=== PATIENT | female | born 1965 | race Caucasian/White ===

== ENCOUNTER → 2016-10-27 | Outpatient (CLI) | payer BC ==
[2016-10-27 14:17] LABS: Basophils % (A) 1 %; CH 26.4; CHCM 31.8; Eosinophils # (A) 0.1 k/uL (0-0.7); Eosinophils % (A) 3 %; HCT 27.3 % (34.0-46.0); HDW 3.63; HGB 8.9 gm/dL (11.4-16.0); Hypochromasia Moderate; Luc % (Auto) 3; Lymphocytes # (A) 1.5 k/uL (1.0-4.8); Lymphocytes % (A) 36 %; MCH 27.4 pg (25.0-35.0); MCHC 32.8 g/dL (31.0-37.0); MCV 83.6 fL (80.0-100.0); Mean Platelet Volume 7.1; Monocytes # (A) 0.1 k/uL (0-1.0); Monocytes % (A) 3 %; Neutrophils # (A) 2.3 k/uL (1.3-7.7); Neutrophils % (A) 55 %; Poikilocytosis Slight; RBC 3.26 m/uL (3.80-5.40); RDW 15.4 % (11.5-15.5); WBC 4.2 k/uL (3.8-10.6); WBC (Perox) 4.27
== END | disposition home or self-care (01) ==
LOC: LABWHC1 13:28
PROVIDERS: ATTEND Family Medicine
DX: R53.83 Other fatigue (principal)
CPT/HCPCS: 36415; 85025

== ENCOUNTER → 2016-11-08 | Outpatient (CLI) | payer BC ==
[2016-11-08 12:45] LABS: Basophils # (A) 0.1 k/uL (0-0.2); Basophils % (A) 1 %; CH 25.1; CHCM 30.3; Eosinophils # (A) 0.1 k/uL (0-0.7); Eosinophils % (A) 2 %; HCT 33.9 % (34.0-46.0); HGB 10.4 gm/dL (11.4-16.0); Hypochromasia Marked; Luc # (Auto) 0.19; Luc % (Auto) 3; Lymphocytes # (A) 1.4 k/uL (1.0-4.8); Lymphocytes % (A) 24 %; MCH 25.5 pg (25.0-35.0); MCHC 30.6 g/dL (31.0-37.0); MCV 83.4 fL (80.0-100.0); Monocytes # (A) 0.3 k/uL (0-1.0); Monocytes % (A) 5 %; Neutrophils # (A) 3.8 k/uL (1.3-7.7); Neutrophils % (A) 64 %; Poikilocytosis Moderate; RBC 4.06 m/uL (3.80-5.40); RDW 14.7 % (11.5-15.5); WBC (Perox) 6.28
== END | disposition home or self-care (01) ==
LOC: LABPAT 12:26
PROVIDERS: ATTEND Obstetrics & Gynecology
DX: Z01.812 Encounter for preprocedural laboratory examination (principal); N92.0 Excessive and frequent menstruation with regular cycle; N95.1 Menopausal and female climacteric states; D25.9 Leiomyoma of uterus, unspecified
CPT/HCPCS: 83001; 85025

== ENCOUNTER 2016-11-15 06:18 | Day surgery (SDC) | payer BC ==
[2016-11-11 16:06] VITALS: BMI 38.8
[~2016-11-15 06:18] MED LIST: DEXAMETHASONE SOD PHOSPHATE 10 MG/ML 1 ML VIAL IV ONE; HYDROmorphone 1 MG/ML 1 ML SYRINGE IVP PRN; LACTATED RINGERS 1,000 ML IV SCH; LIDOCAINE 1% 20 ML VIAL (10MG/ML) FOR IV START INTRADERMA PRN; ONDANSETRON 4 MG/2 ML VIAL IVP ONE; Pre Op ABX Message 1 EACH MISC MISCELLANE ONE; SCOPOLAMINE 1.5MG/72HR PATCH TRANSDERM ONE
[2016-11-15] MEDS ORDERED: PROPOFOL 10 MG/ML 20 ML VIAL IV ONE (07:21)
[2016-11-15] MEDS ORDERED: fentaNYL (PF) 50 MCG/ML 2 ML AMP ONE (07:21)
[2016-11-15] MEDS ORDERED: LIDOCAINE 1% INJ 10MG/ML (20 ML MDV) ONE (07:21)
[2016-11-15] MEDS ORDERED: MIDAZOLAM 2 MG/2 ML VIAL ONE (07:21)
[2016-11-15 07:55] VITALS: TEMP 99.6
[2016-11-15] MEDS ORDERED: KETOROLAC 30 MG/ML 1 ML VIAL IVP ONE (07:55)
--- NOTE | 2016-11-15 08:01 | P.OP ---
Date of Procedure: 11/15/16 Preoperative Diagnosis: bleeding, anemia, fibroid uterus. Postoperative Diagnosis: Endometrial polyps, fibroids, pathology pending. Procedure(s) Performed: Hysteroscopy, fractional D&C of the uterine cavity, polypectomy. Surgeon: Zari Frias Estimated Blood Loss (ml): 50 IV fluids (ml): 500 Urine output (ml): 150 Pathology: other (The endometrial curettings and polyps.) Condition: stable Disposition: PACU Description of Procedure: Patient is brought to the operating suite where a general anesthetic is administered without difficulty. She's placed in the dorsal lithotomy position. The cervix, vagina, perineum and periurethral areas are all inspected and noted to be normal, they are prepped and draped in usual sterile fashion. Bladder is drained for 150 mL of clear yellow urine. The appropriate timeout is performed to assure proper patient and procedural identification. test is negative. Weighted speculum was placed into the vagina. The cervix appears nulliparous. It is grasped on the anterior lip with a double-tooth tenaculum. Endocervical curettings are performed and sent to pathology. The uterus then sounds to a depth of 15 cm. The cervix was gently and systematically dilated with Hanks dilators. The hysteroscope was placed, saline is infused, and the cavity is distended. There are multiple endometrial polyps noted, along with a uterine fibroid subserosal. Hysteroscope was removed. Cervix is then fully dilated. A medium sharp curette is used and the uterus is thoroughly her attention all 4 quadrants. A fair amount of tissue including polyps and what appears to be a uterine fibroid are procured. When this is done, the hysteroscope is reintroduced, the cavity is re-distended and inspected. No obvious polyps or fibroids remained per inspection. The hysteroscope was removed. Instrumentation is removed from the vagina. The cervix is clean and dry. The uterus is firm, there is only scant bleeding noted. Patient is given Toradol. All sponge needle and enhancement counts are correct at the end of the procedure. Patient is brought back to the recovery room in very good condition with stable vital signs including blood pressure 148/73, pulse 86, 99% O2 saturation. Estimated blood loss 500 mL's. Complications: None. She will follow-up with me in the office in 2 weeks and postoperative instructions are reviewed.
[2016-11-15 08:02] VITALS: RESP 18
[2016-11-15 09:02] VITALS: BP 115/66; PULSE 75
== END 2016-11-15 09:30 | disposition home or self-care (01) ==
LOC: OR 06:18
PROVIDERS: ATTEND Obstetrics & Gynecology
DX: N84.0 Polyp of corpus uteri (principal); D25.2 Subserosal leiomyoma of uterus; D64.9 Anemia, unspecified; Z79.52 Long term (current) use of systemic steroids; Z79.899 Other long term (current) drug therapy; Z88.1 Allergy status to other antibiotic agents; Z88.2 Allergy status to sulfonamides; Z88.8 Allergy status to other drugs, medicaments and biological substances
CPT/HCPCS: 58558; 81025; 88305; J2250; J1100; J2405; J2001; J3010; J1885; J2704

== ENCOUNTER → 2017-06-10 | Outpatient (CLI) | payer BC ==
[2017-06-10 10:41] LABS: Anisocytosis Slight; Basophils # (A) 0.1 k/uL (0-0.2); Basophils % (A) 1 %; CH 23.6; CHCM 31.8; Eosinophils # (A) 0.1 k/uL (0-0.7); Eosinophils % (A) 2 %; HCT 32.9 % (34.0-46.0); HDW 3.37; HGB 10.3 gm/dL (11.4-16.0); Hypochromasia Moderate; Luc # (Auto) 0.19; Luc % (Auto) 4; Lymphocytes # (A) 1.7 k/uL (1.0-4.8); Lymphocytes % (A) 33 %; MCH 23.2 pg (25.0-35.0); MCHC 31.2 g/dL (31.0-37.0); MCV 74.5 fL (80.0-100.0); Microcytosis Slight; Monocytes # (A) 0.3 k/uL (0-1.0); Monocytes % (A) 5 %; Neutrophils # (A) 2.8 k/uL (1.3-7.7); Neutrophils % (A) 55 %; RBC 4.42 m/uL (3.80-5.40); RDW 16.7 % (11.5-15.5); WBC (Perox) 5.22
[2017-06-10 12:05] LABS: ALT 36 U/L (9-52); AST 22 U/L (14-36); Alkaline Phosphatase 82 U/L (38-126); Anion Gap 10 mmol/L; Blood Urea Nitrogen 10 mg/dL (7-17); Calcium 9.6 mg/dL (8.4-10.2); Carbon Dioxide 21 mmol/L (22-30); Chloride 110 mmol/L (98-107); Glucose 85 mg/dL (74-99); Iron 21 ug/dL (37-170); Non-African American GFR(MDRD) >60 (>60 ml/min/1.73 sqM); Potassium 4.4 mmol/L (3.5-5.1); Sodium 141 mmol/L (137-145); Total Bilirubin 0.3 mg/dL (0.2-1.3); Total Protein 6.8 g/dL (6.3-8.2)
[2017-06-10 12:14] LABS: % Iron Saturation 5.1 % (20-50); Total Iron Binding Capacity 411 ug/dL (265-497)
== END | disposition home or self-care (01) ==
LOC: LABWHC1 10:04
PROVIDERS: ATTEND Nurse Practitioner Family
DX: N92.0 Excessive and frequent menstruation with regular cycle (principal); L65.9 Nonscarring hair loss, unspecified; R20.2 Paresthesia of skin; R51 Headache
CPT/HCPCS: 36415; 80053; 83540; 83550; 84439; 84443; 84466; 85025

== ENCOUNTER 2018-02-11 08:24 | Emergency (ER) | payer BC ==
--- NOTE | 2018-02-11 09:10 | ED ---
General Adult HPI - General Chief complaint: Upper Respiratory Infection Stated complaint: Diff Breathing Time Seen by Provider: 02/11/18 08:32 Source: patient, RN notes reviewed Mode of arrival: ambulatory Limitations: no limitations - History of Present Illness Initial comments: Patient 53-year-old female presenting to the emergency room today with multiple complaints. Patient does admit that she's had cough productive over the last week. Doesn't some sputum production it's been green in color. Patient states that she is also had some increased urinary frequency over the past week as well. She does not that she's felt some pain right side. Patient also admits that she has felt somewhat fatigued and states she has a history of anemia and is unsure if this is related to patient denies any other complaints or symptoms. Patient denies any recent fever, chills, shortness of breath, chest pain, nausea or vomiting, numbness or tingling, constipation or diarrhea, headaches or visual changes, or any other complaints. - Related Data Home Medications Medication Instructions Recorded Confirmed medroxyPROGESTERone [Provera] 2.5 mg PO DIRECTED PRN 10/14/15 11/15/16 Ferrous Sulfate [Iron (65 MG 325 mg PO DAILY 11/11/16 11/15/16 Elemental)] Previous Rx's Medication Instructions Recorded Cephalexin [Keflex] 500 mg PO Q12HR 10 Days cap 02/11/18 Allergies Allergy/AdvReac Type Severity Reaction Status Date / Time benzoyl peroxide Allergy Rash/Hives Verified 02/11/18 08:30 sulfamethoxazole Allergy THROAT Verified 02/11/18 08:30 [From Bactrim] Swelling trimethoprim [From Bactrim] Allergy THROAT Verified 02/11/18 08:30 Swelling Review of Systems ROS Statement: Those systems with pertinent positive or pertinent negative responses have been documented in the HPI. ROS Other: All systems not noted in ROS Statement are negative. Past Medical History Past Medical History: No Reported History Additional Past Medical History / Comment(s): HEAVY MENSES, ANEMIA History of Any Multi-Drug Resistant Organisms: None Reported Past Surgical History: No Surgical Hx Reported Additional Past Surgical History / Comment(s): D&C Past Anesthesia/Blood Transfusion Reactions: Previous Problems w/ Anesthesia Additional Past Anesthesia/Blood Transfusion Reaction / Comment(s): STATES WAS VERY HARD TO WAKE UP POST OP, AND HAD CHEST HEAVINESS FOR A COUPLE DAYS AFTER Past Psychological History: No Psychological Hx Reported Smoking Status: Never smoker Past Alcohol Use History: None Reported Past Drug Use History: None Reported - Past Family History Mother Family Medical History: No Reported History General Exam - General Exam Comments Initial Comments: General: The patient is awake and alert, in no distress, and does not appear acutely ill. Eye: Pupils are equal, round and reactive to light, extra-ocular movements are intact. No nystagmus. There is normal conjunctiva bilaterally. No signs of icterus. Ears, nose, mouth and throat: There are moist mucous membranes and no oral lesions. Neck: The neck is supple, there is no tenderness or JVD. Cardiovascular: There is a regular rate and rhythm. No murmur, rub or gallop is appreciated. Respiratory: Lungs are clear to auscultation, respirations are non-labored, breath sounds are equal. No wheezes, stridor, rales, or rhonchi. Gastrointestinal: Soft, non-distended, non-tender abdomen without masses or organomegaly noted. There is no rebound or guarding present. No CVA tenderness. Bowel sounds are unremarkable. Musculoskeletal: Normal ROM, no tenderness. Strength 5/5. Sensation intact. Pulses equal bilaterally 2+. Neurological: A&O x 3. CN II-XII intact, There are no obvious motor or sensory deficits. Coordination appears grossly intact. Speech is normal. Skin: Skin is warm and dry and no rashes or lesions are noted. Psychiatric: Cooperative, appropriate mood & affect, normal judgment. Limitations: no limitations Course Vital Signs 02/11/18 02/11/18 08:26 09:00 Temperature 98 F Pulse Rate 83 Respiratory 18 20 Rate Blood Pressure 136/60 O2 Sat by Pulse 97 Oximetry Medical Decision Making - Medical Decision Making Patient reexamined at this time and shows no signs of distress. Patient has had cough congestion over the past week. Patient does admit to urinary urgency. She states she has a history of anemia. Her labs were checked and are unremarkable. No sign of infection. Culture is pending. Patient's chest x -ray shows no pneumonia. Patient will recover with a antibiotic for bronchitis. Patient advised to follow-up family doctor return here to emergency room symptoms increase or worsen. - Lab Data Result diagrams: 02/11/18 08:55 02/11/18 08:55 Lab Results 02/11/18 02/11/18 02/11/18 Range/Units 08:55 08:55 08:55 WBC 6.8 (3.8-10.6) k/uL RBC 4.57 (3.80-5.40) m/uL Hgb 13.2 (11.4-16.0) gm/dL Hct 38.5 (34.0-46.0) % MCV 84.2 (80.0-100.0) fL MCH 28.9 (25.0-35.0) pg MCHC 34.3 (31.0-37.0) g/dL RDW 13.4 (11.5-15.5) % Plt Count 190 (150-450) k/uL Neutrophils % 63 % Lymphocytes % 19 % Monocytes % 9 % Eosinophils % 4 % Basophils % 1 % Neutrophils # 4.3 (1.3-7.7) k/uL Lymphocytes # 1.3 (1.0-4.8) k/uL Monocytes # 0.6 (0-1.0) k/uL Eosinophils # 0.3 (0-0.7) k/uL Basophils # 0.0 (0-0.2) k/uL Sodium 143 (137-145) mmol/L Potassium 4.2 (3.5-5.1) mmol/L Chloride 110 H (98-107) mmol/L Carbon Dioxide 21 L (22-30) mmol/L Anion Gap 12 mmol/L BUN 15 (7-17) mg/dL Creatinine 0.37 L (0.52-1.04) mg/dL Est GFR (CKD-EPI)AfAm >90 (>60 ml/min/1.73 sqM) Est GFR (CKD-EPI)NonAf >90 (>60 ml/min/1.73 sqM) Glucose 83 (74-99) mg/dL Calcium 9.0 (8.4-10.2) mg/dL Total Bilirubin 0.2 (0.2-1.3) mg/dL AST 26 (14-36) U/L ALT 34 (9-52) U/L Alkaline Phosphatase 76 (38-126) U/L Total Protein 6.4 (6.3-8.2) g/dL Albumin 3.9 (3.5-5.0) g/dL Urine Color Yellow Urine Appearance Cloudy H (Clear) Urine pH 6.0 (5.0-8.0) Ur Specific [place] 1.029 (1.001-1.035) Urine Protein Trace H (Negative) Urine Glucose (UA) Negative (Negative) Urine Ketones Negative (Negative) Urine Blood Negative (Negative) Urine Nitrite Negative (Negative) Urine Bilirubin Negative (Negative) Urine Urobilinogen <2.0 (<2.0) mg/dL Ur Leukocyte Esterase Trace H (Negative) Urine WBC 1 (0-5) /hpf Ur Squamous Epith Cells 1 (0-4) /hpf Urine Mucus Occasional H (None) /hpf Disposition Clinical Impression: Acute bronchitis Disposition: HOME SELF-CARE Condition: Good Instructions: Acute Bronchitis (ED) Additional Instructions: Please use medication as discussed. Please follow-up with family doctor in the next 2 days of symptoms have not improved. Please return to emergency room if the symptoms increase or worsen or for any other concerns. Prescriptions: Cephalexin [Keflex] 500 mg PO Q12HR 10 Days cap Is patient prescribed a controlled substance at d/c from ED?: No Referrals: Cass Waters III, MD [Primary Care Provider] - 1-2 days Time of Disposition: 09:37
[2018-02-11 09:12] LABS: Appearance,Urine Cloudy (Clear); Bilirubin,Urine Negative (Negative); Blood,Urine Negative (Negative); Color,Urine Yellow; Glucose,Urine (UA) Negative (Negative); Ketones,Urine Negative (Negative); Leukocyte Esterase,Urine Trace (Negative); Mucus,Urine Occasional /hpf; Nitrite,Urine Negative (Negative); Protein,Urine Trace (Negative); Specific Gravity,Urine 1.029 (1.001-1.035); Squamous Epithelial Cell,Urine 1 /hpf (0-4); Urobilinogen,Urine <2.0 mg/dL (<2.0); WBC,Urine 1 /hpf (0-5)
[2018-02-11 09:14] LABS: Basophils % (A) 1 %; Eosinophils # (A) 0.3 k/uL (0-0.7); Eosinophils % (A) 4 %; HCT 38.5 % (34.0-46.0); HGB 13.2 gm/dL (11.4-16.0); Lymphocytes # (A) 1.3 k/uL (1.0-4.8); Lymphocytes % (A) 19 %; MCH 28.9 pg (25.0-35.0); MCHC 34.3 g/dL (31.0-37.0); MCV 84.2 fL (80.0-100.0); Mean Platelet Volume 7.3; Monocytes # (A) 0.6 k/uL (0-1.0); Monocytes % (A) 9 %; Neutrophils # (A) 4.3 k/uL (1.3-7.7); Neutrophils % (A) 63 %; Platelet Count 190 k/uL (150-450); RBC 4.57 m/uL (3.80-5.40); RDW 13.4 % (11.5-15.5); WBC 6.8 k/uL (3.8-10.6)
[2018-02-11 09:16] LABS: ALT 34 U/L (9-52); AST 26 U/L (14-36); Albumin 3.9 g/dL (3.5-5.0); Alkaline Phosphatase 76 U/L (38-126); Anion Gap 12 mmol/L; Blood Urea Nitrogen 15 mg/dL (7-17); Carbon Dioxide 21 mmol/L (22-30); Chloride 110 mmol/L (98-107); Glucose 83 mg/dL (74-99); Potassium 4.2 mmol/L (3.5-5.1); Sodium 143 mmol/L (137-145); Total Bilirubin 0.2 mg/dL (0.2-1.3); Total Protein 6.4 g/dL (6.3-8.2)
--- NOTE | 2018-02-11 09:24 | XR ---
EXAMINATION TYPE: XR chest 2V DATE OF EXAM: 02/11/2018 HISTORY: cough. REFERENCE: NONE. FINDINGS: The lungs are clear. Pleural space are clear. The heart is not enlarged. IMPRESSION: NO ACTIVE INTRATHORACIC DISEASE.
[2018-02-11 10:03] VITALS: BP 145/82; PULSE 88; RESP 18; TEMP 98.2
== END 2018-02-11 10:03 | disposition home or self-care (01) ==
LOC: EC 08:24
DX: J20.9 Acute bronchitis, unspecified (principal); R39.15 Urgency of urination; R35.0 Frequency of micturition; D64.9 Anemia, unspecified; Z79.899 Other long term (current) drug therapy; Z88.1 Allergy status to other antibiotic agents; Z88.8 Allergy status to other drugs, medicaments and biological substances
CPT/HCPCS: 36415; 71046; 80053; 81001; 85025; 87077; 87086; 87186; 99283

== ENCOUNTER 2018-03-08 22:20 | Observation (INO) | payer BC ==
[2018-03-08] MEDS ORDERED: SODIUM CHLORIDE 0.9% 1,000 ML IV STA ×2 (23:25)
[2018-03-09] MEDS ORDERED: MECLIZINE 12.5 MG TAB PO STA (00:02)
--- NOTE | 2018-03-09 00:03 | ED ---
Female Urogenital HPI - General Chief complaint: Vaginal Bleeding Stated complaint: vaginal bleeding 22 days/dizziness Time Seen by Provider: 03/08/18 22:58 Source: patient, RN notes reviewed, old records reviewed Mode of arrival: wheelchair Limitations: no limitations - History of Present Illness Initial comments: Patient's 53-year-old female chief complaint of vaginal bleeding for the past 3 weeks. She also complains of dizziness, lightheadedness, jaw pain shortness of breath. Patient states the dizziness jaw pain and headache of started today. Patient states that she's had history of low hemoglobin levels. Lanoxin occur she often gets the dizziness. Patient states that she has no specific chest pain. Does report mild shortness of breath. No cardiac history for herself. - Related Data Home Medications Medication Instructions Recorded Confirmed Ferrous Sulfate [Iron (65 MG 325 mg PO DAILY 11/11/16 03/08/18 Elemental)] Ascorbic Acid [Vitamin C] 500 mg PO DAILY 03/08/18 03/08/18 Calcium Carbonate/Vitamin D3 1 tab PO BID 03/08/18 03/08/18 [Calcium 600-Vit D3 400 Caplet] Cholecalciferol [Vitamin D3] 5,000 unit PO DAILY 03/08/18 03/08/18 Simethicone [Gas-X] 125 mg PO BID PRN 03/08/18 03/08/18 Ubidecarenone [Co Q-10] 100 mg PO DAILY 03/08/18 03/08/18 Vitamin B Complex 1 cap PO DAILY 03/08/18 03/08/18 Zinc 50 mg PO DAILY 03/08/18 03/08/18 guaiFENesin [Mucinex] 600 mg PO BID PRN 03/08/18 03/08/18 Previous Rx's Medication Instructions Recorded Meclizine [Antivert] 25 mg PO TID PRN #20 tab 03/09/18 Allergies Allergy/AdvReac Type Severity Reaction Status Date / Time benzoyl peroxide Allergy Rash/Hives Verified 03/08/18 23:35 sulfamethoxazole Allergy THROAT Verified 03/08/18 23:35 [From Bactrim] Swelling trimethoprim [From Bactrim] Allergy THROAT Verified 03/08/18 23:35 Swelling Review of Systems ROS Statement: Those systems with pertinent positive or pertinent negative responses have been documented in the HPI. ROS Other: All systems not noted in ROS Statement are negative. Past Medical History Past Medical History: No Reported History Additional Past Medical History / Comment(s): HEAVY MENSES, ANEMIA History of Any Multi-Drug Resistant Organisms: None Reported Past Surgical History: No Surgical Hx Reported, Orthopedic Surgery Additional Past Surgical History / Comment(s): D&C, Left shoulder sx Past Anesthesia/Blood Transfusion Reactions: Previous Problems w/ Anesthesia Additional Past Anesthesia/Blood Transfusion Reaction / Comment(s): STATES WAS VERY HARD TO WAKE UP POST OP, AND HAD CHEST HEAVINESS FOR A COUPLE DAYS AFTER Past Psychological History: No Psychological Hx Reported Smoking Status: Never smoker Past Alcohol Use History: None Reported Past Drug Use History: None Reported - Past Family History Mother Family Medical History: No Reported History General Exam - General Exam Comments Initial Comments: This patient's 53-year-old female. Alert and oriented. No significant distress. Limitations: no limitations General appearance: alert Head exam: Present: atraumatic, normocephalic, normal inspection Eye exam: Present: normal appearance, PERRL, EOMI. Absent: scleral icterus, conjunctival injection, periorbital swelling ENT exam: Present: normal exam, mucous membranes moist Neck exam: Present: normal inspection. Absent: tenderness, meningismus, lymphadenopathy Respiratory exam: Present: normal lung sounds bilaterally. Absent: respiratory distress, wheezes, rales, rhonchi, stridor Cardiovascular Exam: Present: regular rate, normal rhythm, normal heart sounds. Absent: systolic murmur, diastolic murmur, rubs, gallop, clicks GI/Abdominal exam: Present: soft, normal bowel sounds. Absent: distended, tenderness, guarding, rebound, rigid Back exam: Present: normal inspection Neurological exam: Present: alert, oriented X3, CN II-XII intact Psychiatric exam: Present: normal affect, normal mood Skin exam: Present: warm, dry, intact, normal color. Absent: rash Course Vital Signs 03/08/18 22:25 Temperature 98.0 F Pulse Rate 69 Respiratory 20 Rate Blood Pressure 123/58 O2 Sat by Pulse 98 Oximetry Medical Decision Making - Medical Decision Making This patient is a 53 year old female with multiple CC. Patient complains of vaginal bleeding, light for 3 weeks. Concerned for low Hgb. She also reports jaw pain, dizziness, diaphoresis, and shortness of breath today. No cardiac history. Patient informed of concern for atypical features of chest pain. CBC and cardiac labs completed. EKG shows no acute changes. She was alsoc scheduled for cT brain tomorrow morning. CT brain completed and negative for acute process. CXR normal. Troponin is negative. Discussed that I am concerned for unstable anginaand would like to monitor the patient and consult cardiology. Patient agrees. Also of note Hgb is within normal limits. Discussed she may need transvaginal US which could be scheduled in morning. - Lab Data Result diagrams: 03/09/18 00:10 03/09/18 00:10 Lab Results 03/09/18 03/09/18 03/09/18 Range/Units 00:10 00:10 00:10 WBC 8.1 (3.8-10.6) k/uL RBC 4.00 (3.80-5.40) m/uL Hgb 11.8 (11.4-16.0) gm/dL Hct 33.8 L (34.0-46.0) % MCV 84.3 (80.0-100.0) fL MCH 29.4 (25.0-35.0) pg MCHC 34.9 (31.0-37.0) g/dL RDW 13.7 (11.5-15.5) % Plt Count 238 (150-450) k/uL Neutrophils % 79 % Lymphocytes % 16 % Monocytes % 3 % Eosinophils % 1 % Basophils % 1 % Neutrophils # 6.4 (1.3-7.7) k/uL Lymphocytes # 1.3 (1.0-4.8) k/uL Monocytes # 0.3 (0-1.0) k/uL Eosinophils # 0.1 (0-0.7) k/uL Basophils # 0.0 (0-0.2) k/uL PT (9.0-12.0) sec INR (<1.2) APTT (22.0-30.0) sec Sodium 143 (137-145) mmol/L Potassium 3.9 (3.5-5.1) mmol/L Chloride 107 (98-107) mmol/L Carbon Dioxide 22 (22-30) mmol/L Anion Gap 14 mmol/L BUN 13 (7-17) mg/dL Creatinine 0.50 L (0.52-1.04) mg/dL Est GFR (CKD-EPI)AfAm >90 (>60 ml/min/1.73 sqM) Est GFR (CKD-EPI)NonAf >90 (>60 ml/min/1.73 sqM) Glucose 122 H (74-99) mg/dL Calcium 9.7 (8.4-10.2) mg/dL Magnesium 2.0 (1.6-2.3) mg/dL Iron (50-170) ug/dL TIBC (228-460) ug/dL Iron Saturation (12.00-45.00) Ferritin (10.0-291.0) ng/mL Total Bilirubin 0.1 L (0.2-1.3) mg/dL AST 31 (14-36) U/L ALT 38 (9-52) U/L Alkaline Phosphatase 54 (38-126) U/L Total Creatine Kinase 35 (30-135) U/L CK-MB (CK-2) 0.5 (0.0-2.4) ng/mL CK-MB (CK-2) Rel Index 1.4 Troponin I <0.012 (0.000-0.034) ng/mL NT-Pro-B Natriuret Pep pg/mL Total Protein 6.5 (6.3-8.2) g/dL Albumin 4.0 (3.5-5.0) g/dL Amylase 45 (30-110) U/L Lipase 48 (23-300) U/L 03/09/18 03/09/18 03/09/18 Range/Units 00:10 00:10 00:10 WBC (3.8-10.6) k/uL RBC (3.80-5.40) m/uL Hgb (11.4-16.0) gm/dL Hct (34.0-46.0) % MCV (80.0-100.0) fL MCH (25.0-35.0) pg MCHC (31.0-37.0) g/dL RDW (11.5-15.5) % Plt Count (150-450) k/uL Neutrophils % % Lymphocytes % % Monocytes % % Eosinophils % % Basophils % % Neutrophils # (1.3-7.7) k/uL Lymphocytes # (1.0-4.8) k/uL Monocytes # (0-1.0) k/uL Eosinophils # (0-0.7) k/uL Basophils # (0-0.2) k/uL PT 9.8 (9.0-12.0) sec INR 1.0 (<1.2) APTT 22.3 (22.0-30.0) sec Sodium (137-145) mmol/L Potassium (3.5-5.1) mmol/L Chloride (98-107) mmol/L Carbon Dioxide (22-30) mmol/L Anion Gap mmol/L BUN (7-17) mg/dL Creatinine (0.52-1.04) mg/dL Est GFR (CKD-EPI)AfAm (>60 ml/min/1.73 sqM) Est GFR (CKD-EPI)NonAf (>60 ml/min/1.73 sqM) Glucose (74-99) mg/dL Calcium (8.4-10.2) mg/dL Magnesium (1.6-2.3) mg/dL Iron 39 L (50-170) ug/dL TIBC 340 (228-460) ug/dL Iron Saturation 11.47 L (12.00-45.00) Ferritin 20.9 (10.0-291.0) ng/mL Total Bilirubin (0.2-1.3) mg/dL AST (14-36) U/L ALT (9-52) U/L Alkaline Phosphatase (38-126) U/L Total Creatine Kinase (30-135) U/L CK-MB (CK-2) (0.0-2.4) ng/mL CK-MB (CK-2) Rel Index Troponin I (0.000-0.034) ng/mL NT-Pro-B Natriuret Pep 30 pg/mL Total Protein (6.3-8.2) g/dL Albumin (3.5-5.0) g/dL Amylase (30-110) U/L Lipase (23-300) U/L 03/09/18 00:18 AJ performed at 12/27/1932 shows sinus rhythm, ventricular rate of 76 bpm. PA interval 168. QRS ration 100 ms. QT QTc is 4/454. Disposition Clinical Impression: Atypical chest pain, Dizziness, Vagina bleeding Disposition: ADMITTED IP TO THIS HOSP Is patient prescribed a controlled substance at d/c from ED?: No When asked, does pt state using other controlled substances?: No If prescribed controlled substance>3 days was MAPS reviewed?: No If opioid is for acute pain is fill amount 7 days or less?: No If Rx opioid, was Start Talking consent form obtained?: No Time of Disposition: 16:03
[2018-03-09 00:20] LABS: Basophils % (A) 1 %; Eosinophils # (A) 0.1 k/uL (0-0.7); Eosinophils % (A) 1 %; HCT 33.8 % (34.0-46.0); HGB 11.8 gm/dL (11.4-16.0); Lymphocytes # (A) 1.3 k/uL (1.0-4.8); Lymphocytes % (A) 16 %; MCH 29.4 pg (25.0-35.0); MCHC 34.9 g/dL (31.0-37.0); MCV 84.3 fL (80.0-100.0); Monocytes # (A) 0.3 k/uL (0-1.0); Monocytes % (A) 3 %; Neutrophils # (A) 6.4 k/uL (1.3-7.7); Neutrophils % (A) 79 %; Platelet Count 238 k/uL (150-450); RDW 13.7 % (11.5-15.5); WBC 8.1 k/uL (3.8-10.6)
[2018-03-09 00:32] LABS: Partial Thromboplastin Time 22.3 sec (22.0-30.0); Prothrombin Time 9.8 sec (9.0-12.0)
[2018-03-09 00:34] LABS: ALT 38 U/L (9-52); AST 31 U/L (14-36); Alkaline Phosphatase 54 U/L (38-126); Anion Gap 14 mmol/L; Blood Urea Nitrogen 13 mg/dL (7-17); Calcium 9.7 mg/dL (8.4-10.2); Carbon Dioxide 22 mmol/L (22-30); Chloride 107 mmol/L (98-107); Glucose 122 mg/dL (74-99); Lipase 48 U/L (23-300); Potassium 3.9 mmol/L (3.5-5.1); Sodium 143 mmol/L (137-145); Total Bilirubin 0.1 mg/dL (0.2-1.3); Total Protein 6.5 g/dL (6.3-8.2)
[2018-03-09] MEDS ORDERED: ACETAMINOPHEN TAB 325 MG TAB ONE (03:11)
[2018-03-09 05:44] LABS: Creatine Kinase 35 U/L (30-135); Creatine Kinase MB 0.5 ng/mL (0.0-2.4); Troponin I <0.012 ng/mL (0.000-0.034)
[2018-03-09 05:45] LABS: Amylase 45 U/L (30-110)
--- NOTE | 2018-03-09 06:26 | CT ---
EXAM: CT Head Without Intravenous Contrast CLINICAL HISTORY: dizziness, SOB TECHNIQUE: Axial computed tomography images of the head/brain without intravenous contrast. CTDI is 60.3 mGy and DLP is 1037.4 mGy-cm This CT exam was performed using one or more of the following dose reduction techniques: automated exposure control, adjustment of the mA and/or kV according to patient size, and/or use of iterative reconstruction technique. COMPARISON: No relevant prior studies available. FINDINGS: Brain: Unremarkable. No hemorrhage. No significant white matter disease. No edema. Ventricles: Unremarkable. No ventriculomegaly. Bones/joints: Unremarkable. No acute fracture. Soft tissues: Unremarkable. Sinuses: Unremarkable as visualized. No acute sinusitis. Mastoid air cells: Unremarkable as visualized. No mastoid effusion. IMPRESSION: No acute intracranial process
--- NOTE | 2018-03-09 06:26 | XR ---
EXAM: XR Chest, 2 Views CLINICAL HISTORY: dizziness, SOB TECHNIQUE: Frontal and lateral views of the chest. COMPARISON: 02/11/18. FINDINGS: Lungs: Unremarkable. No consolidation. Pleural space: Unremarkable. No pneumothorax. Heart: Unremarkable. No cardiomegaly. Mediastinum: Unremarkable. Bones/joints: Unremarkable. IMPRESSION: No evidence of acute pulmonary disease.
[2018-03-09] MEDS ORDERED: ACETAMINOPHEN TAB 325 MG TAB PO PRN (06:49)
[2018-03-09] MEDS ORDERED: HYDROcodone/APAP 5-325MG 1 EACH TAB PO PRN ×2 (06:50)
[2018-03-09] MEDS ORDERED: ZOLPIDEM 5 MG TAB PO PRN (06:51)
[2018-03-09] MEDS ORDERED: ONDANSETRON 4 MG/2 ML VIAL IVP PRN (06:51)
[2018-03-09] MEDS ORDERED: ALPRAZolam 0.25 MG TAB PO PRN (06:51)
[2018-03-09] MEDS ORDERED: SODIUM CHLORIDE 0.9% 1,000 ML IV SCH (07:00)
--- NOTE | 2018-03-09 08:20 | CONS ---
CONSULTATION Attending: Dr. Waters. Mrs. Ortez is a 53-year-old female with no prior documented history of coronary artery disease who presented with symptoms of severe dizziness, headache with some jaw discomfort as well as dyspnea. She had recent episode of bronchitis, but she has been complaining of severe dizziness with the headache. Initially, she thought it to be related to her vaginal bleeding and anemia, but on presentation to the emergency room, her hemoglobin was 11.8. She has no prior cardiac history, but has been feeling more fatigued. Recently was seen by Dr. Whalen and was scheduled to undergo a stress test and an echo as an outpatient. The patient is reasonably active physically. She has no exertional chest pain. Her breathing is stable until the episode of bronchitis. She has no clear PND or orthopnea. She had one episode of peripheral edema. She had dizziness as noted, but no palpitation. She had a syncope earlier this year related to a respiratory infection. Her coronary risk factors are negative for hypertension. She is nonsmoker, nondiabetic. Her lipid profile is not available. MEDICATION: Her medications include vitamin D, Mucinex, zinc, vitamin B, coenzyme Q10, vitamin C and iron. REVIEW OF SYSTEMS: RESPIRATORY SYSTEM: She had recent upper respiratory infection. No history of chronic obstructive lung disease. GI SYSTEM: No recent GI bleeding. No peptic ulcer disease. SYSTEM: She had the episode of vaginal bleeding. NERVOUS SYSTEM: No stroke or seizure. PHYSICAL EXAMINATION: A 53-year-old female, alert, oriented, in no apparent distress. Blood pressure 123/50 with the heart rate in the 60s. HEAD: Normocephalic. EYES: Sclerae anicteric. NECK: Good carotid upstroke. No bruit. No jugular venous distention. LUNGS: Clear to auscultation. HEART: Regular rate and rhythm. S1, S2. No S3, no S4. No murmur or rub with a systolic murmur heard at the base, ejection type. No diastolic murmur. ABDOMEN: Soft, obese, nontender. Positive bowel sounds. No organomegaly. EXTREMITIES: No edema. Intact distal pulses. LAB DATA: Lab data revealed troponin less than 0.012. NT proBNP of 30. BUN and creatinine 13 and 0.5. Potassium 3.9. Hemoglobin of 11.8. EKG revealed a sinus mechanism with a normal axis and intervals. Normal electrocardiogram. Chest x-ray shows no evidence of infiltrate. CT scan of the head shows no acute changes. IMPRESSION: 1. Symptoms of progressive dyspnea and fatigue with dizziness of unclear etiology. No clear evidence to suggest acute coronary syndrome. 2. Headache of unclear etiology. 3. Prior history of vaginal bleeding with no significant anemia. RECOMMENDATION: From the cardiac standpoint, the patient was scheduled to undergo a stress test and echocardiogram as an outpatient. I will proceed with testing today and if there is no evidence of abnormality, then no further cardiac workup will be needed. Thank you for this consult. We will follow with you. MMODL / IJN: [id number] /
[2018-03-09 08:25] VITALS: RESP 18
[2018-03-09] MEDS ORDERED: FAMOTIDINE 20 MG TAB PO SCH (09:00)
--- NOTE | 2018-03-09 10:41 | NM ---
EXAMINATION TYPE: NM stress cardiolite complete DATE OF EXAM: 03/09/2018 COMPARISON: NONE HISTORY: Chest pain TECHNIQUE: After the intravenous administration of 10.18 mCi Tc 99m Sestamibi - Rest images obtained 45 minutes post injection. The patient exercised using a TAWANA protocol and 1 minute prior to peak exercise was injected with 26.9 mCi Tc 99m Sestamibi - Stress images obtained 30 minutes post inject ion. FINDINGS: Targeted heart rate was achieved during performance of the study. Review of stress and rest SPECT keri ges demonstrates some decreased radiopharmaceutical uptake along the anterolateral left ventricle on stress as compared to rest images. Gated analysis shows normal wall motion with an estimated left ve ntricular ejection fraction of 58 %. There does appear to be some difference in patient positioning on stress and rest images. IMPRESSION: Difficult to exclude stress-induced left ventricular myocardial ischemia along the inferolateral left ventricle.
[2018-03-09 11:38] VITALS: BP 133/66; PULSE 94; TEMP 98.3
[2018-03-09 12:14] LABS: Iron Saturation 11.47 (12.00-45.00)
--- NOTE | 2018-03-09 13:11 | EST ---
EXERCISE STRESS DATE OF SERVICE: 03/09/2018 AGE: 53 SEX: F HT: 5'7" WT: 270 PROTOCOL: Cardiolite Rustam Stress Test STAGE: 3 DURATION OF EXERCISE: 7:30 HEART RATE REST: 81 BLOOD PRESSURE REST: 135/76 MAXIMUM HEART RATE ACHIEVED: 155 MAXIMUM BLOOD PRESSURE: 207/62 85% MPHR: 140 100% MPHR: 165 METS: 9.1 INDICATIONS: Shortness of breath CLINICAL INFORMATION: 1. Baseline rhythm is sinus mechanism, rate of 81, normal axis and intervals. Normal echocardiogram. Baseline blood pressure 135/76 mmHg. Patient exercise on Rustam protocol for 7 minute 30 seconds achieving a peak rate of 155 beats per minute, which is equal to 94% predicted heart. 2. Blood pressure is 207/62 mmHg. Test was terminated due to fatigue. There is no chest pain. Electrocardiograph monitoring revealed no evidence of diagnostic ischemic ST deviation. Cardiolite was injected at peak exercise. CONCLUSION: 1. Average exercise tolerance with normal electrocardiograph response to exercise. 2. Nuclear images will be reported separately. MMODL / IJN: [id number] /
--- NOTE | 2018-03-09 14:10 | P.HPIM ---
History of Present Illness 53-year-old pleasant female came in with complains of vertigo which happens with head movement long-lasting and the lasted all night which improved now along with some nausea. Patient was also having headache since she he tells had recently. CT of the head did not show any significant abnormality patient had a recent episode of bronchitis. I did not do Leila - hallspike maneuver as his symptoms already improved. Patient was also complaining of some Pain and diaphoresis because of which the there was a concern of acute coronary syndromes because of which can he was consulted from ER cardiology evaluated the patient underwent stress test which was read as unable to completely exclude mild area of ischemia. Although not conclusive for any inducible ischemia. Awaiting cardiology clearance for discharge. Patient appears to have either labyrinthitis or benign push vertigo, patient will be discharged on symptomatically treatment with meclizine. Review of Systems REVIEW OF SYSTEMS: CONSTITUTIONAL: No fever, no malaise, no fatigue. HEENT: No recent visual problems or hearing problems. Denied any sore throat. CARDIOVASCULAR: No chest pain, orthopnea, PND, no palpitations, no syncope. PULMONARY: No shortness of breath, no cough, no hemoptysis. GASTROINTESTINAL: No diarrhea, no nausea, no vomiting, no abdominal pain. Normoactive bowel sounds. NEUROLOGICAL: No headaches, no weakness, no numbness. HEMATOLOGICAL: Denies any bleeding or petechiae. GENITOURINARY: Denies any burning micturition, frequency, or urgency. MUSCULOSKELETAL/RHEUMATOLOGICAL: Denies any joint pain, swelling, or any muscle pain. ENDOCRINE: Denies any polyuria or polydipsia. The rest of the 14-point review of systems is negative. Past Medical History Past Medical History: Chest Pain / Angina, Syncope Additional Past Medical History / Comment(s): HEAVY MENSES, ANEMIA, chronic fatigue for many months History of Any Multi-Drug Resistant Organisms: None Reported Past Surgical History: Orthopedic Surgery Additional Past Surgical History / Comment(s): D&C x2, Left shoulder sx Past Anesthesia/Blood Transfusion Reactions: Previous Problems w/ Anesthesia Additional Past Anesthesia/Blood Transfusion Reaction / Comment(s): STATES WAS VERY HARD TO WAKE UP POST OP, AND HAD CHEST HEAVINESS FOR A COUPLE DAYS AFTER Past Psychological History: No Psychological Hx Reported Smoking Status: Never smoker Past Alcohol Use History: None Reported Past Drug Use History: None Reported - Past Family History Mother Family Medical History: No Reported History Medications and Allergies Home Medications Medication Instructions Recorded Confirmed Type Ferrous Sulfate [Iron (65 MG 325 mg PO DAILY 11/11/16 03/08/18 History Elemental)] Ascorbic Acid [Vitamin C] 500 mg PO DAILY 03/08/18 03/08/18 History Calcium Carbonate/Vitamin D3 1 tab PO BID 03/08/18 03/08/18 History [Calcium 600-Vit D3 400 Caplet] Cholecalciferol [Vitamin D3] 5,000 unit PO DAILY 03/08/18 03/08/18 History Simethicone [Gas-X] 125 mg PO BID PRN 03/08/18 03/08/18 History Ubidecarenone [Co Q-10] 100 mg PO DAILY 03/08/18 03/08/18 History Vitamin B Complex 1 cap PO DAILY 03/08/18 03/08/18 History Zinc 50 mg PO DAILY 03/08/18 03/08/18 History guaiFENesin [Mucinex] 600 mg PO BID PRN 03/08/18 03/08/18 History Meclizine [Antivert] 25 mg PO TID PRN #20 tab 03/09/18 Rx Allergies Allergy/AdvReac Type Severity Reaction Status Date / Time benzoyl peroxide Allergy Rash/Hives Verified 03/08/18 23:35 sulfamethoxazole Allergy THROAT Verified 03/08/18 23:35 [From Bactrim] Swelling trimethoprim [From Bactrim] Allergy THROAT Verified 03/08/18 23:35 Swelling Physical Exam Vitals: Vital Signs Temp Pulse Pulse Resp BP BP Pulse Ox 03/09/18 11:37 98.3 F 94 18 133/66 95 03/09/18 07:25 97.5 F L 68 18 123/70 96 03/08/18 22:25 98.0 F 69 20 123/58 98 Intake and Output 03/08/18 03/09/18 03/09/18 22:59 06:59 14:59 Intake Total 240 Balance 240 Intake: Oral 240 Other: Voiding Method Toilet Weight 122.47 kg 122.47 kg PHYSICAL EXAMINATION: GENERAL: The patient is alert and oriented x3, not in any acute distress. Well developed, well nourished. HEENT: Pupils are round and equally reacting to light. EOMI. No scleral icterus. No conjunctival pallor. Normocephalic, atraumatic. No pharyngeal erythema. No thyromegaly. CARDIOVASCULAR: S1 and S2 present. No murmurs, rubs, or gallops. PULMONARY: Chest is clear to auscultation, no wheezing or crackles. ABDOMEN: Soft, nontender, nondistended, normoactive bowel sounds. No palpable organomegaly. MUSCULOSKELETAL: No joint swelling or deformity. EXTREMITIES: No cyanosis, clubbing, or pedal edema. NEUROLOGICAL: Gross neurological examination did not reveal any focal deficits. SKIN: No rashes. Results CBC & Chem 7: 03/09/18 00:10 03/09/18 00:10 Labs: Abnormal Lab Results - Last 24 Hours (Table) 03/09/18 03/09/18 Range/Units 00:10 00:10 Hct 33.8 L (34.0-46.0) % Creatinine 0.50 L (0.52-1.04) mg/dL Glucose 122 H (74-99) mg/dL Total Bilirubin 0.1 L (0.2-1.3) mg/dL Thrombosis Risk Factor Assmnt - Choose All That Apply Any of the Below Risk Factors Present?: Yes Each Factor Represents 1 point: Age 41-60 years, Obesity (BMI >25), Swollen legs (current) Other Risk Factors: No Other congenital or acquired thrombophilia - If yes, enter type in comment: No Thrombosis Risk Factor Assessment Total Risk Factor Score: 3 Thrombosis Risk Factor Assessment Level: Moderate Risk Assessment and Plan Plan: -Vertigo: He appears to be peripheral, does not have any hearing problems or fullness in the years are ringing in the ears. Patient will be discharged on meclizine -Jaw pain: Patient was ruled out acute kidney syndrome stress test results as mentioned above. -Headache etiology is unclear patient is asked to use nonsteroidal anti- inflammatories CT of the head did not show any lesions. If patient continues to have headaches may need further evaluation by neurology headache headache symptomatology is not consistent with any primary headache syndromes.
--- NOTE | 2018-03-09 14:11 | P.DS ---
Providers Date of admission: 03/09/18 03:20 Attending physician: Joss Geronimo Consults: 03/09/18 06:47 Consult Physician Routine Consulting Provider: Rochelle Xiong Consult Reason/Comments: chest pain Do you want consulting provider notified?: Yes Placement Type Exists?: Yes Primary care physician: Cass Waters [facility] Course: Please refer to my HPI Plan - Discharge Summary Discharge Rx Participant: No New Discharge Prescriptions: New Meclizine [Antivert] 25 mg PO TID PRN #20 tab PRN Reason: Vertigo No Action Ferrous Sulfate [Iron (65 MG Elemental)] 325 mg PO DAILY Ascorbic Acid [Vitamin C] 500 mg PO DAILY Cholecalciferol [Vitamin D3] 5,000 unit PO DAILY guaiFENesin [Mucinex] 600 mg PO BID PRN PRN Reason: Cold Symptoms Zinc 50 mg PO DAILY Vitamin B Complex 1 cap PO DAILY Ubidecarenone [Co Q-10] 100 mg PO DAILY Simethicone [Gas-X] 125 mg PO BID PRN PRN Reason: GAS Calcium Carbonate/Vitamin D3 [Calcium 600-Vit D3 400 Caplet] 1 tab PO BID Discharge Medication List Ferrous Sulfate [Iron (65 MG Elemental)] 325 mg PO DAILY 11/11/16 [History] Ascorbic Acid [Vitamin C] 500 mg PO DAILY 03/08/18 [History] Calcium Carbonate/Vitamin D3 [Calcium 600-Vit D3 400 Caplet] 1 tab PO BID [History] Cholecalciferol [Vitamin D3] 5,000 unit PO DAILY 03/08/18 [History] Simethicone [Gas-X] 125 mg PO BID PRN 03/08/18 [History] Ubidecarenone [Co Q-10] 100 mg PO DAILY 03/08/18 [History] Vitamin B Complex 1 cap PO DAILY 03/08/18 [History] Zinc 50 mg PO DAILY 03/08/18 [History] guaiFENesin [Mucinex] 600 mg PO BID PRN 03/08/18 [History] Meclizine [Antivert] 25 mg PO TID PRN #20 tab 03/09/18 [Rx] Follow up Appointment(s)/Referral(s): Cass Waters III, MD [Primary Care Provider] - 3 Days Discharge Disposition: HOME SELF-CARE
[2018-03-09] MEDS ORDERED: NITROGLYCERIN SL TABS 0.4 MG TAB SUBLINGUAL PRN (14:27)
[2018-03-09] MEDS ORDERED: SODIUM CHLORIDE 0.9% 1,000 ML in EMPTY BAG 1 BAG IV ONE (14:27)
--- NOTE | 2018-03-09 14:39 | P.PN ---
Progress Note - Text Cardiolyte stress test reveals decreased radiopharmaceutical uptake along anterolateral left ventricle on rest images versus stress. Difficult to exclude stress induced ischemia along inferolateral left ventricle. These finding have been discussed in detal with the patient and her mother. We recommend further evaluation with cardiac catheterization. I have discussed the risks, benefits and alternative therapies for the above-mentioned procedure and for both sedation/analgesia as well as necessary blood product administration, if indicated, as they pertain to this patient. The patient has indicated understanding of the risks and procedures discussed. She is hesitant to undergo this procedure and would like some time to think and consider her options. Risks of not moving forward have been explained in detail up to and including sudden cardiac . She has verbalized understanding of the risks. If she should decide to move forward she will be NPO after midnight tonight for procedure tomorrow morning with Dr. Whalen.
--- NOTE | 2018-03-09 20:14 | ECHOF ---
Referral Reason:dyspnea MEASUREMENTS -------- HEIGHT: 170.2 cm WEIGHT: 122.5 kg BP: 123/58 IVSd: 1.0 cm (0.6 - 1.1) LVIDd: 4.2 cm (3.9 - 5.3) LVPWd: 1.1 cm (0.6 - 1.1) IVSs: 1.3 cm LVIDs: 3.0 cm LVPWs: 1.3 cm LAESV Index (A-L): 20.84 ml/m Ao Diam: 3.3 cm (2.0 - 3.7) AV Cusp: 1.7 cm (1.5 - 2.6) LA Diam: 2.9 cm (2.7 - 3.8) EPSS: 1.4 cm MV E Yang: 0.80 m/s MV DecT: 284 ms MV A Yang: 0.84 m/s MV E/A Ratio: 0.95 RAP: 5.00 mmHg RVSP: 15.32 mmHg MV EF SLOPE: 36.35 mm/s (70 - 150) MV EXCURSION: 1.44 cm (> 18.000) FINDINGS -------- Sinus rhythm. This was a technically adequate study. The left ventricular size is normal. Left ventricular wall thickness is normal. Overall left vent ricular systolic function is normal with, an EF between 55 - 60 %. The right ventricle is normal in size and function. Normal LA size by volume 22+/-6 ml/m2. The right atrium is normal in size. The aortic valve is trileaflet, and appears structurally normal. No aortic stenosis or regurgitation. The mitral valve is normal. There is trace to mild mitral regurgitation. Trace tricuspid regurgitation present. Right ventricular systolic pressure is normal at < 35 mmHg. There is no evidence of pulmonary hypertension. The pulmonic valve was not well visualized. There is no pulmonic regurgitation present. The aortic root size is normal. Normal inferior vena cava with normal inspiratory collapse consistent with estimated right atrial pre ssure of 5 mmHg. There is no pericardial effusion. CONCLUSIONS -------- 1. Sinus rhythm. 2. This was a technically adequate study. 3. The left ventricular size is normal. 4. Left ventricular wall thickness is normal. 5. Overall left ventricular systolic function is normal with, an EF between 55 - 60 %. 6. Normal LA size by volume 22+/-6 ml/m2. 7. The aortic valve is trileaflet, and appears structurally normal. No aortic stenosis or regurgitati on. 8. There is trace to mild mitral regurgitation. 9. Trace tricuspid regurgitation present. 10. Right ventricular systolic pressure is normal at < 35 mmHg. 11. The pulmonic valve was not well visualized. 12. There is no pulmonic regurgitation present. 13. The aortic root size is normal. 14. There is no pericardial effusion. SOFTWARE CONTROLS ENGINEER: Sreedhar Gordon RDCS
== END 2018-03-09 16:18 | disposition left against medical advice (07) ==
LOC: EC 22:20 → 3OBS 03-09 03:20 → INTOOBSV 03-09 03:20
PROVIDERS: ADMIT Hospitalist; ATTEND Hospitalist
DX: R42 Dizziness and giddiness (principal); R61 Generalized hyperhidrosis; R53.82 Chronic fatigue, unspecified; R68.84 Jaw pain; R51 Headache; R06.00 Dyspnea, unspecified; R07.89 Other chest pain; N92.0 Excessive and frequent menstruation with regular cycle; R11.0 Nausea; D64.9 Anemia, unspecified; E66.9 Obesity, unspecified; Z68.41 Body mass index [BMI] 40.0-44.9, adult; M79.89 Other specified soft tissue disorders; Z79.899 Other long term (current) drug therapy; Z88.1 Allergy status to other antibiotic agents; Z88.2 Allergy status to sulfonamides; Z88.8 Allergy status to other drugs, medicaments and biological substances; Z87.09 Personal history of other diseases of the respiratory system
CPT/HCPCS: 99285 ×2; 96360 ×2; 96361 ×4; 36415; 93005; 93017; 93306; 83880; 80053; 82728; 82150; 82550; 82553; 83540; 83550; 83690; 83735; 84484; 85025; 85610; 85730; 71046; 70450; 78452; G0378; A9500

== ENCOUNTER → 2018-03-21 | Outpatient (CLI) | payer BC ==
[2018-03-21 12:34] LABS: Basophils % (A) 1 %; Eosinophils # (A) 0.2 k/uL (0-0.7); Eosinophils % (A) 3 %; HCT 32.5 % (34.0-46.0); Lymphocytes # (A) 1.6 k/uL (1.0-4.8); Lymphocytes % (A) 32 %; MCH 29.8 pg (25.0-35.0); MCHC 33.8 g/dL (31.0-37.0); MCV 88.4 fL (80.0-100.0); Mean Platelet Volume 6.5; Monocytes # (A) 0.3 k/uL (0-1.0); Monocytes % (A) 6 %; Neutrophils # (A) 2.8 k/uL (1.3-7.7); Neutrophils % (A) 56 %; Platelet Count 235 k/uL (150-450); RBC 3.68 m/uL (3.80-5.40); RDW 15.5 % (11.5-15.5)
[2018-03-21 12:51] LABS: Anion Gap 12 mmol/L; Blood Urea Nitrogen 9 mg/dL (7-17); Calcium 9.1 mg/dL (8.4-10.2); Carbon Dioxide 21 mmol/L (22-30); Chloride 111 mmol/L (98-107); Glucose 83 mg/dL (74-99); Potassium 3.9 mmol/L (3.5-5.1); Sodium 144 mmol/L (137-145)
[2018-03-21 19:14] LABS: Iron Saturation 8.81 (12.00-45.00)
== END | disposition home or self-care (01) ==
LOC: LABWHC1 11:08
PROVIDERS: ATTEND Family Medicine
DX: R07.9 Chest pain, unspecified (principal)
CPT/HCPCS: 36415; 80048; 82728; 83540; 83550; 85025

== ENCOUNTER 2018-04-17 10:45 | Day surgery (SDC) | payer BC ==
[2018-04-14 12:06] VITALS: BMI 42.0
[~2018-04-17 10:45] MED LIST changes: +ALPRAZolam 0.25 MG TAB PO PRN; +ALPRAZolam 0.5 MG TAB PO PRN; +ASPIRIN 325 MG TAB PO STA; +ATORVASTATIN 80 MG TAB PO STA; -DEXAMETHASONE SOD PHOSPHATE 10 MG/ML 1 ML VIAL IV ONE; -HYDROmorphone 1 MG/ML 1 ML SYRINGE IVP PRN; -LACTATED RINGERS 1,000 ML IV SCH; -LIDOCAINE 1% 20 ML VIAL (10MG/ML) FOR IV START INTRADERMA PRN; +NITROGLYCERIN SL TABS 0.4 MG TAB SUBLINGUAL PRN; -ONDANSETRON 4 MG/2 ML VIAL IVP ONE; -Pre Op ABX Message 1 EACH MISC MISCELLANE ONE; -SCOPOLAMINE 1.5MG/72HR PATCH TRANSDERM ONE; +SODIUM CHLORIDE 0.9% 1,000 ML in EMPTY BAG 1 BAG IV ONE
[2018-04-17 11:26] VITALS: TEMP 98.9
[2018-04-17] MEDS ORDERED: VERAPAMIL 2.5 MG/ML 2 ML AMP ONE (12:08)
[2018-04-17] MEDS ORDERED: fentaNYL (PF) 50 MCG/ML 2 ML AMP ONE (12:08)
[2018-04-17] MEDS ORDERED: fentaNYL (PF) 50 MCG/ML 2 ML AMP IV ONE (12:13)
[2018-04-17] MEDS ORDERED: SODIUM CHLORIDE 0.9% 1,000 ML IV ONE (12:13)
[2018-04-17] MEDS ORDERED: LIDOCAINE 2% SYG (PF) 100 MG/5 ML MISCELLANE ONE ×2 (12:17)
[2018-04-17] MEDS ORDERED: LIDOCAINE 1% INJ 10MG/ML (20 ML MDV) SQ ONE (12:17)
[2018-04-17] MEDS: VERAPAMIL SYRINGE (5 MG/10 ML) INTRAARTER ONE ×2 (12:19→12:22)
[2018-04-17] MEDS ORDERED: HEPARIN SODIUM 1,000 UN/ML (10ML VL) ONE (12:21)
[2018-04-17] MEDS ORDERED: MIDAZOLAM 2 MG/2 ML VIAL ONE (12:23)
[2018-04-17] MEDS ORDERED: MIDAZOLAM 2 MG/2 ML VIAL IV ONE (12:24)
[2018-04-17] MEDS ORDERED: HEPARIN SODIUM 1,000 UN/ML (10ML VL) IV ONE (12:26)
[2018-04-17] MEDS ORDERED: IOPAMIDOL-370 125ML BTL INJ ONE (12:31)
[2018-04-17] MEDS ORDERED: RX INFO: IV CONTRAST WAS GIVEN 1 EACH MISC MISCELLANE PRN (12:47)
--- NOTE | 2018-04-17 13:06 | CC ---
CARDIAC CATHETERIZATION REPORT Mrs. Ortez is a 53-year-old female who was recently admitted to the hospital with jaw discomfort as well as dizziness. She had no evidence of a enzymatic changes, but because of her symptoms, she underwent a myocardial perfusion imaging that revealed evidence of inducible ischemia involving the inferolateral wall. In view of that, recommendation was made regarding cardiac catheterization. The procedure as well as the risks and the complication were discussed with the patient who is in full understanding and agreement. PROCEDURE: Patient was brought to labor training manager in a fasting semi-sedated state after receiving fentanyl and Benadryl and achieving moderate conscious sedated state. Using Xylocaine anesthesia in the Seldinger technique, a 6-Micronesian sheath was introduced in the right radial artery. Selective right and left coronary angiography performed using 5-Micronesian 3.5 bend right and left Freddy catheter. Multiple views of the coronary artery including hemiaxial views obtained. Following that, a 5-Micronesian tight pigtail catheter was introduced in the left ventricle and a 30-degree YOUNG view of the left ventricle was obtained. Following that, catheter and sheaths were removed. Hemostasis was obtained with deployment of TR band. There was no immediate complication. Patient returned to her room in stable condition. FINDINGS: LEFT MAIN: This is a large-sized vessel trifurcating in left circumflex, left anterior descending artery. Left main coronary artery has no evidence of high-grade stenosis. LEFT ANTERIOR DESCENDING ARTERY: This is a large-sized vessel reaching toward the apex with a wraparound apex segment giving rise to a moderately sized diagonal branch. The left anterior descending artery as well as branches have no evidence of obstructive coronary artery disease. LEFT CIRCUMFLEX: This is a nondominant vessel giving rise to large branching obtuse marginal branch. The left circumflex as well as branches have no evidence of obstructive coronary artery disease. RAMUS INTERMEDIUS: This is a moderately-sized vessel reaching toward the apical lateral wall that has no evidence of high-grade stenosis. RIGHT CORONARY ARTERY: This is a dominant vessel bifurcating into PDA and posterolateral segment branches. The right coronary artery as well as branches have no evidence of obstructive coronary artery disease. The PLV is small in caliber. LEFT VENTRICULOGRAM: Left ventriculogram is performed in 30-degree YOUNG view and revealed normal left ventricular size and systolic function. There was no significant mitral regurgitation. The ejection fraction is above 60%. HEMODYNAMICS: There was no gradient across the aortic valve. The left ventricular end- diastolic pressure is 24 to 26 mmHg. The patient received 5000 units of intravenous heparin as well as intraarterial verapamil. CONCLUSION: 1. Normal coronary arteries. 2. Normal left ventricular size and systolic function. RECOMMENDATION: The patient will continue on medical therapy. Continue aggressive coronary risk modifications. Those findings and recommendations were discussed with the patient and her family and are in full understanding and agreement. Duration procedure is 19 minutes. MMODL / IJN: [id number] /
--- NOTE | 2018-04-17 13:12 | LTR ---
April 17, 2018 Re: Susan Ortez Dear Dr. Waters: I had the opportunity to perform cardiac catheterization on Mrs. Ortez at [facility] on the 17 of April and a full copy of the procedure note will be forwarded to you. In brief, she was found to have no evidence of obstructive coronary artery disease with a normal left ventricular size and systolic function. Based on those findings, I recommend continue medical therapy with the aggressive coronary risk modification initiated. Thank you again for allowing me the opportunity to participate in her care. Please feel free to call for any questions. Sincerely yours, MD CARLA Serrano / [place]OLEONN: [id number] /
[2018-04-17 13:23] VITALS: PULSE 80
[2018-04-17 13:37] VITALS: RESP 18
[2018-04-17 15:46] VITALS: BP 125/64
[2018-04-17] MEDS ORDERED: NON-FORMULARY DRUG (Calcium Carbonate/Vitamin D3 [Calcium 600-Vit D3 400 Caplet] 1 TAB) PO SCH (21:00)
[2018-04-18] MEDS ORDERED: ASCORBIC ACID 500 MG TAB PO SCH (09:00)
== END 2018-04-17 17:30 | disposition home or self-care (01) ==
LOC: CATHCVL 10:45
PROVIDERS: ATTEND Internal Medicine Interventional Cardiology
DX: R94.39 Abnormal result of other cardiovascular function study (principal); Z79.82 Long term (current) use of aspirin; Z88.1 Allergy status to other antibiotic agents; Z88.2 Allergy status to sulfonamides
CPT/HCPCS: 93458; C1894; C1769; J2250; J2001; J3010; J1644; Q9967

== ENCOUNTER → 2018-11-29 | Outpatient (CLI) | payer BC ==
[2018-11-29 12:56] LABS: Basophils # (A) 0.1 k/uL (0-0.2); Basophils % (A) 1 %; Eosinophils # (A) 0.2 k/uL (0-0.7); Eosinophils % (A) 4 %; HCT 42.6 % (34.0-46.0); HGB 14.4 gm/dL (11.4-16.0); Lymphocytes # (A) 1.8 k/uL (1.0-4.8); Lymphocytes % (A) 30 %; MCH 29.2 pg (25.0-35.0); MCHC 33.7 g/dL (31.0-37.0); MCV 86.7 fL (80.0-100.0); Mean Platelet Volume 6.6; Monocytes # (A) 0.3 k/uL (0-1.0); Monocytes % (A) 6 %; Neutrophils # (A) 3.4 k/uL (1.3-7.7); Neutrophils % (A) 56 %; Platelet Count 206 k/uL (150-450); RBC 4.91 m/uL (3.80-5.40); RDW 13.1 % (11.5-15.5); WBC 6.1 k/uL (3.8-10.6)
[2018-11-29 16:37] LABS: Albumin 4.5 g/dL (3.80-4.90); Albumin/Globulin Ratio 1.88 (1.60-3.17); Anion Gap 7.3 mmol/L (4.00-12.00); Calcium 9.8 mg/dL (8.7-10.3); Carbon Dioxide 23.7 mmol/L (21.6-31.8); Globulin 2.4 g/dL (1.6-3.3); LDL Cholesterol,Calculated 110.8 mg/dL (0.0-131.0); Potassium 4.2 mmol/L (3.5-5.5); Total Bilirubin 0.5 mg/dL (0.3-1.2); Total Protein 6.9 g/dL (6.2-8.2); VLDL Calculation 20.2 mg/dL (5.00-40.00)
[2018-11-29 16:39] LABS: Iron Saturation 22.02 (12.00-45.00)
[2018-11-29 16:48] LABS: Vitamin D 25 Hydroxy 16.9 ng/mL (30.0-100.0)
[2018-11-29 20:18] LABS: Hemoglobin A1C 5.2 % (4.0-6.0)
== END | disposition home or self-care (01) ==
LOC: LABWHC1 11:20
PROVIDERS: ATTEND Family Medicine
DX: Z00.00 Encounter for general adult medical examination without abnormal findings (principal); E55.9 Vitamin D deficiency, unspecified; R20.0 Anesthesia of skin; R53.83 Other fatigue; E66.01 Morbid (severe) obesity due to excess calories; D50.9 Iron deficiency anemia, unspecified; Z68.41 Body mass index [BMI] 40.0-44.9, adult
CPT/HCPCS: 36415; 80053; 80061; 82306; 82607; 82728; 83036; 83540; 83550; 84443; 85025

== ENCOUNTER → 2018-12-14 | Outpatient (CLI) | payer BC ==
--- NOTE | 2018-12-14 12:17 | SFUN ---
SLEEP CENTER FOLLOW UP NOTE DATE OF SERVICE: 12/14/2018 This 53-year-old lady had been followed in sleep center to discuss results of the sleep study and following plan. I discussed results of the sleep study with patient in detail. Home sleep apnea test showed the patient has obstructive sleep apnea with apnea-hypopnea index 19.4 and oxygen desaturation to 84%. Pulse rate was in the range 59 and 104. [place] Sleepiness Scale today is 7. Patient continued to wake up from sleep 2 times per night, sometimes feel tiredness during the day. PHYSICAL EXAM: During physical exam, patient in no distress. VITAL SIGNS: BP 119/69, HR 74, RR 16, height 5 feet 7 inches, weight 285, temperature 98.0, oxygen saturation at room air 97%. HEENT: PERRLA, EOMI. Oropharynx moderately low position of soft palate, Mallampati 3- 2. NECK: Supple, no JVD. Thyroid is not palpable. LUNGS: Clear to percussion and to auscultation. Good air exchange. No wheezing or rhonchi. HEART: S1, S2 regular. No murmurs, gallops, or rubs. ABDOMEN: Obese. EXTREMITIES: No clubbing or cyanosis. COBBLER MCKAY: Awake, alert, and oriented X3. Cranial nerves 2 to 7 intact. There is no fasciculation or atrophy. noted. No focal deficits observed. IMPRESSION: 1. Moderate obstructive sleep apnea-hypopnea syndrome; apnea-hypopnea index 19.4 with oxygen desaturation to 84% by results of home sleep apnea test. 2. Obesity. 3. Some restriction of nasal breathing. 4. Status post shoulder surgery. 5. Status post D and C for bleeding in 2017. 6. History of iron deficiency anemia. PLAN: 1. We will fit patient with small nasal pillow mask today because she has claustrophobia. I will suggest AirFit P10. 2. We will send a prescription for auto PAP and patient will start to use equipment every night for the whole night. 3. Losing weight. 4. Sleep hygiene with regular time in bed for at least 8 hours. 5. No driving if feeling any sleepiness. 6. I will see patient for followup visit in 1 month after she will get her equipment to check her clinical response and treatment compliance with treatment and make any necessary adjustments if necessary for the treatment. Thank you very much for allowing me to participate in management of your patient. Sincerely, Pedro Pablo Gillespie MD, PhD, FAASM Diplomat of [place] [employer] [place] [employer] Master [employer] [facility] [place] CARLA / ARABELLA: [id number] /
== END ==
LOC: SLEEP 10:29
PROVIDERS: ATTEND Internal Medicine
DX: G47.33 Obstructive sleep apnea (adult) (pediatric) (principal); E66.9 Obesity, unspecified; R06.89 Other abnormalities of breathing; F40.240 Claustrophobia; Z98.890 Other specified postprocedural states; Z86.2 Personal history of diseases of the blood and blood-forming organs and certain disorders involving the immune mechanism

== ENCOUNTER → 2019-01-08 | Outpatient (CLI) | payer BC ==
[2019-01-08 23:29] LABS: ALT 47 U/L (8-44); AST 36 U/L (13-35)
== END | disposition home or self-care (01) ==
LOC: LABWHC1 17:25
PROVIDERS: ATTEND Family Medicine
DX: R79.89 Other specified abnormal findings of blood chemistry (principal)
CPT/HCPCS: 36415; 84450; 84460

== ENCOUNTER → 2019-01-12 | Outpatient (CLI) | payer BC ==
--- NOTE | 2019-01-12 08:48 | US ---
EXAMINATION TYPE: US abdomen complete DATE OF EXAM: 01/12/2019 COMPARISON: NONE CLINICAL HISTORY: R94.5 elevated liver enzymes R10.11 RUQ pain. EXAM MEASUREMENTS: Liver Length: 16.3 cm Gallbladder Wall: 0.3 cm CBD: 0.5 cm Spleen: 12.5 cm Right Kidney: 12.0 x 5.5 x 6.8 cm Left Kidney: 12.5 x 6.3 x 6.2 cm Pancreas: visualized portions appear echogenic Liver: difficult to penetrate and a suspect liver is enlarged, measurement may be under represented . Gallbladder: No stones seen Evidence for sonographic Aparicio's sign: no CBD: wnl Spleen: wnl Right Kidney: No hydronephrosis or masses seen Left Kidney: No hydronephrosis or masses seen Upper IVC: wnl Abd Aorta: wnl There is no ascites. Liver shows a coarse echotexture. IMPRESSION: Correlate for hepatic steatosis, hepatocellular disease.
== END ==
LOC: RADUSWWP 07:42
PROVIDERS: ATTEND Family Medicine
DX: R10.11 Right upper quadrant pain (principal); R94.5 Abnormal results of liver function studies
CPT/HCPCS: 76700

== ENCOUNTER → 2019-11-09 | Outpatient (CLI) | payer BC ==
[2019-11-09 16:33] LABS: Calcium 9.8 mg/dL (8.7-10.3)
[2019-11-09 16:47] LABS: T4, Free (Free Thyroxine) 1.3 ng/dL (0.80-1.80)
== END | disposition home or self-care (01) ==
LOC: LABWHC1 10:06
PROVIDERS: ATTEND General Practice
DX: E03.9 Hypothyroidism, unspecified (principal); E55.9 Vitamin D deficiency, unspecified
CPT/HCPCS: 36415; 82306; 82310; 84439; 84443; 84481

== ENCOUNTER → 2024-06-15 | Outpatient (CLI) | payer OTHER ==
[2024-06-15 16:42] LABS: HCT 42.5 % (37.2-46.3); HGB 14.3 g/dL (12.0-15.0); MCH 29.5 pg (27.0-32.0); MCHC 33.6 g/dL (32.0-37.0); MCV 87.8 FL (80.0-97.0); Mean Platelet Volume 10.2 FL (9.5-12.2); NRBC Per 100 WBC 0 X 10*3/uL (0.00-0.01); Platelet Count 201 X 10*3/uL (140-440); RBC 4.84 X 10*6/uL (4.10-5.20); RDW 12.9 % (11.5-14.5); WBC 5.31 X 10*3/uL (4.50-10.00)
[2024-06-15 17:31] LABS: ALT 66 U/L (8-44); AST 42 U/L (13-35); Albumin 4.4 g/dL (3.8-4.9); Albumin/Globulin Ratio 1.83 Ratio (1.60-3.17); Alkaline Phosphatase 97 U/L (41-126); BUN/Creat Ratio 17.33 Ratio (12.00-20.00); Blood Urea Nitrogen 10.4 mg/dL (9.0-27.0); Calcium 9.8 mg/dL (8.7-10.3); Carbon Dioxide 20.9 mmol/L (21.6-31.8); Chloride 112 mmol/L (96-109); Chol/HDL Ratio 3.38 Ratio; Globulin 2.4 g/dL (1.6-3.3); Glucose 101 mg/dL (70-110); LDL Cholesterol,Calculated 114.9 mg/dL (0.0-131.0); Potassium 4.3 mmol/L (3.5-5.5); Sodium 144 mmol/L (135-145); Total Bilirubin 0.3 mg/dL (0.3-1.2); Total Protein 6.8 g/dL (6.2-8.2); VLDL Calculation 16.66 mg/dL (5.00-40.00)
== END ==
LOC: LABWHC1 11:11
PROVIDERS: ATTEND Family Medicine
DX: Z00.00 Encounter for general adult medical examination without abnormal findings (principal); Z68.41 Body mass index [BMI] 40.0-44.9, adult
CPT/HCPCS: 36415; 80053; 80061; 82306; 82728; 83036; 84443; 85027